=== PATIENT | male | born 1960 | race Caucasian/White ===

== ENCOUNTER 2022-01-05 12:19 | Emergency (ER) | payer SELFPAY | END 2022-01-05 13:15 | disposition home or self-care (01) | LOC: MADERS 12:19 | DX: B35.3 Tinea pedis (principal); F17.210 Nicotine dependence, cigarettes, uncomplicated | CPT/HCPCS: 99282 ==

== ENCOUNTER 2023-07-02 11:47 | Emergency (ER) | payer SELFPAY | END 2023-07-02 12:32 | disposition home or self-care (01) | LOC: MADERS 11:47 | DX: L02.415 Cutaneous abscess of right lower limb (principal); F17.210 Nicotine dependence, cigarettes, uncomplicated | CPT/HCPCS: 99282 ==